=== PATIENT | male | born 1975 | race Caucasian/White ===

== ENCOUNTER 2018-07-08 17:33 | Day surgery (SDC) | payer BC, OTHER ==
[~2018-07-08] VITALS: Ht 203.2 cm; Wt 149.7 kg
[2018-07-08] MEDS ORDERED: morphine INJ 10 MG/ML 1ML (SYR OR VIAL) IVP STA ×2 (17:42→18:40)
[2018-07-08] MEDS ORDERED: diphenhydrAMINE 50 MG/ML INJ (BENADRYL) IVP ONE (17:45)
[2018-07-08] MEDS ORDERED: ASPIRIN 81 MG CHEW (CHILDREN'S ASA) PO ONE (17:45)
--- NOTE | 2018-07-08 17:51 | ED Chest Pain ---
General Stated Complaint: CP Source: patient Exam Limitations: no limitations History of Present Illness Date Seen by Provider: Jul 08, 2018 Time Seen by Provider: 17:34 Initial Comments 42-year-old male who presents to the emergency room with complaints of left- sided substernal chest pain that radiates to his left neck and down to his left arm that started at 1640. He reports taking aspirin 325mg and nitroglycerin 3 without relief. He reports that he did have a syncopal episode and vomiting 1 at this time. He is on Plavix and Eliquis and daily aspirin. He reports having significant cardiac history including NSTEMI 1 year ago, history of A. fib, V. tach, pacemaker, and heart failure. He is from [place] and reports that last week he failed a Lexiscan stress test but he is out of town due to his father being ill and was not able to get the heart catheterization that was requested. Timing/Duration: 1 hour Severity/Quality: pressure, sharp Location: substernal Radiation: arms (left), neck (left) Activities at Onset: none Prior CP/Workup: cardiac cath, echocardiography, heart attack, stress test ASA po TRANSLATOR: Yes NTG SL TRANSLATOR: Yes Associated Symptoms: diaphoresis, nausea/vomiting, syncope Allergies and Home Medications Allergies Coded Allergies: adhesive (Verified Allergy, Unknown, rash, 07/08/18) heparin (Verified Allergy, Unknown, 07/08/18) ketorolac (Verified Allergy, Unknown, 07/08/18) Patient Home Medication List Home Medication List Reviewed: Yes Review of Systems Review of Systems Constitutional: see HPI; No chills, No fever Cardiovascular: See HPI, Chest Pain, Syncope Gastrointestinal: See HPI, Nausea, Vomiting All Other Systems Reviewed Negative Unless Noted: Yes Past Wxtuwuh-Azmawt-Hfhwbe Hx Past Med/Social Hx: Reviewed Nursing Past Med/Soc Hx Patient Social History Recent Foreign Travel: No Contact w/Someone Who Travel: No Family Medical History Reviewed Nursing Family Hx Physical Exam Vital Signs Vital Signs - First Documented 07/08/18 17:34 Pulse 84 Resp 17 B/P (MAP) 149/102 (118) Pulse Ox 100 O2 Delivery Room Air Capillary Refill : Height, Weight, BMI Height: '" Weight: lbs. oz. kg; BMI Method: General Appearance: No Apparent Distress, WD/WN Neck: Full Range of Motion, Normal Inspection, Non Tender Respiratory: Chest Non Tender, Lungs Clear, Normal Breath Sounds, No Accessory Muscle Use, No Respiratory Distress Cardiovascular: Regular Rate, Rhythm, No Edema, No Gallop, No JVD, No Murmur, Normal Peripheral Pulses Gastrointestinal: Normal Bowel Sounds, No Organomegaly, No Pulsatile Mass, Non Tender Neurologic/Psychiatric: Alert, Oriented x3, Normal Mood/Affect Skin: Normal Color, Warm/Dry Progress/Results/Core Measures Results/Orders Lab Results Laboratory Tests Test 07/08/18 17:54 Range/Units White Blood Count 6.1 4.3-11.0 10^3/uL Red Blood Count 4.24 L 4.35-5.85 10^6/uL Hemoglobin 10.8 L 13.3-17.7 G/DL Hematocrit 35 L 40-54 % Mean Corpuscular Volume 82 80-99 FL Mean Corpuscular Hemoglobin 25 25-34 PG Mean Corpuscular Hemoglobin Concent 31 L 32-36 G/DL Red Cell Distribution Width 14.6 H 10.0-14.5 % Platelet Count 230 130-400 10^3/uL Mean Platelet Volume 9.4 7.4-10.4 FL Neutrophils (%) (Auto) 78 H 42-75 % Lymphocytes (%) (Auto) 13 12-44 % Monocytes (%) (Auto) 7 0-12 % Eosinophils (%) (Auto) 2 0-10 % Basophils (%) (Auto) 0 0-10 % Neutrophils # (Auto) 4.8 1.8-7.8 X 10^3 Lymphocytes # (Auto) 0.8 L 1.0-4.0 X 10^3 Monocytes # (Auto) 0.4 0.0-1.0 X 10^3 Eosinophils # (Auto) 0.1 0.0-0.3 10^3/uL Basophils # (Auto) 0.0 0.0-0.1 10^3/uL Prothrombin Time 14.0 12.2-14.7 SEC INR Comment 1.0 0.8-1.4 Activated Partial Thromboplast Time 30 24-35 SEC Sodium Level 141 135-145 MMOL/L Potassium Level 4.1 3.6-5.0 MMOL/L Chloride Level 107 98-107 MMOL/L Carbon Dioxide Level 27 21-32 MMOL/L Anion Gap 7 5-14 MMOL/L Blood Urea Nitrogen 11 7-18 MG/DL Creatinine 0.94 0.60-1.30 MG/DL Estimat Glomerular Filtration Rate > 60 BUN/Creatinine Ratio 12 Glucose Level 120 H 70-105 MG/DL Calcium Level 9.2 8.5-10.1 MG/DL Corrected Calcium 9.4 8.5-10.1 MG/DL Magnesium Level 2.1 1.8-2.4 MG/DL Total Bilirubin 0.3 0.1-1.0 MG/DL Aspartate Amino Transf (AST/SGOT) 15 5-34 U/L Alanine Aminotransferase (ALT/SGPT) 23 0-55 U/L Alkaline Phosphatase 68 40-136 U/L Myoglobin 27.1 10.0-92.0 NG/ML Troponin I < 0.028 <0.028 NG/ML B-Type Natriuretic Peptide 27.6 <100.0 PG/ML Total Protein 6.7 6.4-8.2 GM/DL Albumin 3.8 3.2-4.5 GM/DL Amylase Level 43 25-125 U/L Lipase 13 8-78 U/L My Orders Orders - BATOOL LOPEZ Cbc With Automated Diff (07/08/18 17:34) Magnesium (07/08/18 17:34) Chest 1 View, Ap/Pa Only (07/08/18 17:34) Ekg Tracing (07/08/18 17:34) Cardiac Profile 1 (07/08/18 17:34) Comprehensive Metabolic Panel (07/08/18 17:34) Myoglobin Serum (07/08/18 17:34) Protime With Inr (07/08/18 17:34) Partial Thromboplastin Time (07/08/18 17:34) O2 (07/08/18 17:34) Monitor-Rhythm Ecg Trace Only (07/08/18 17:34) Lipid Panel (07/09/18 06:00) Ed Iv/Invasive Line Start (07/08/18 17:34) Lipase (07/08/18 17:34) Amylase (07/08/18 17:34) BNP (07/08/18 17:42) Morphine Injection (Morphine Injection (07/08/18 17:42) Diphenhydramine Injection (Benadryl Inje (07/08/18 17:45) Morphine Injection (Morphine Injection (07/08/18 18:40) Medications Given in ED Current Medications Medications Dose Ordered Sig/Louis Route Start Time Stop Time Status Last Admin Dose Admin Diphenhydramine HCl 25 mg ONCE ONCE IVP 07/08/18 17:45 07/08/18 17:46 DC 07/08/18 18:01 25 MG Vital Signs/I&O 07/08/18 07/08/18 17:34 17:34 Pulse 84 Resp 17 B/P (MAP) 149/102 (118) Pulse Ox 100 O2 Delivery Room Air Room Air Progress Progress Note : Time: 18:40 Progress Note I have seen and evaluated the patient. I've informed him of his laboratory and imaging studies. His pain has improved after morphine from a 7 out of 10 to a 2 out of 10. We will give 1 additional dose of morphine at this time. I have discussed the case with Dr. Orellana at this time and he wishes to have the patient admitted to hospitalist services and consult on the patient. He recommends giving 300 mg one time dose of Plavix at this time serial troponins and echo in the morning. 1911; I have discussed the case with Dr. Post at this time he agrees to accept the patient to hospitalist services and recommends verifying and continuing home medications. The patient agrees with plans of admission. Initial ECG Impression Date: Jul 08, 2018 Initial ECG Impression Time: 17:43 Initial ECG Rate: 85 Initial ECG Rhythm: Normal Sinus Initial ECG Intervals: Normal Initial ECG Impression: Normal Initial ECG Comparisson: No Previous ECG Available Comment Dr. Steele has reviewed and agrees with above. Diagnostic Imaging Diagonstic Imaging: Xray Plain Films/CT/US/NM/MRI: chest Comments NAME: SHAHRZAD NATH [facility] REC#: [id number] PT STATUS: REG ER : 1975 PHYSICIAN: BATOOL LOPEZ ADMIT DATE: 07/08/18/ER Signed Date of Exam: 07/08/18 CHEST 1 VIEW, AP/PA ONLY INDICATION: Chest pain with left arm pain and shortness of breath. FINDINGS: The lung volumes are mildly diminished. The visualized portions of the lungs demonstrate no evidence of alveolar consolidation or infiltrate or findings of significant effusion. There is a pacemaker device. Central pulmonary vascularity appears appropriate without evidence of current failure. There is no acute or suspicious osseous abnormality. IMPRESSION: 1. No radiographic evidence of an acute cardiopulmonary process. Dictated by: Dictated on workstation # [id number] Dict: 07/08/18 1809 Trans: 07/08/181903 Interpreted by: LAURI SMITH MD Electronically signed by: LAURI SMITH MD 07/08/181903 Reviewed: Reviewed by Me Departure Communication (Admissions) Time/Spoke to Admitting Phy: 19:11 Dr. Post Time/Spoke to Consulting Phy: 18:55 Dr. Orellana Impression Primary Impression: Chest pain Disposition: ADMITTED INPATIENT Condition: Stable/Unchanged Admissions Decision to Admit Reason: Admit from ER (General) Decision to Admit/Date: Jul 08, 2018 Time/Decision to Admit Time: 19:00 Departure-Patient Inst. Referrals: NO,LOCAL PHYSICIAN (PCP/Family) Primary Care Physician BATOOL LOPEZ Jul 08, 2018 17:51
[2018-07-08 18:02] LABS: BASOPHILS % (AUTO) 0 % (0-10); EOSINOPHILS # (AUTO) 0.1 10^3/uL (0.0-0.3); EOSINOPHILS % (AUTO) 2 % (0-10); HEMATOCRIT 35 % (40-54); HEMOGLOBIN 10.8 G/DL (13.3-17.7); LYMPHOCYTES # (AUTO) 0.8 X 10^3 (1.0-4.0); LYMPHOCYTES % (AUTO) 13 % (12-44); MEAN CORPUSCULAR HGB CONC 31 G/DL (32-36); MEAN CORPUSCULAR VOLUME 82 FL (80-99); MEAN PLATELET VOLUME 9.4 FL (7.4-10.4); MONOCYTES # (AUTO) 0.4 X 10^3 (0.0-1.0); MONOCYTES % (AUTO) 7 % (0-12); NEUTROPHILS # (AUTO) 4.8 X 10^3 (1.8-7.8); NEUTROPHILS % (AUTO) 78 % (42-75); PLATELET COUNT 230 10^3/uL (130-400); RED CELL DISTRIBUTION WIDTH 14.6 % (10.0-14.5); WHITE BLOOD COUNT 6.1 10^3/uL (4.3-11.0)
[2018-07-08 18:05] LABS: MEAN CORPUSCULAR HEMOGLOBIN 25 PG (25-34)
--- NOTE | 2018-07-08 18:20 | Diagnostic Imaging Report ---
INDICATION: Chest pain with left arm pain and shortness of breath. FINDINGS: The lung volumes are mildly diminished. The visualized portions of the lungs demonstrate no evidence of alveolar consolidation or infiltrate or findings of significant effusion. There is a pacemaker device. Central pulmonary vascularity appears appropriate without evidence of current failure. There is no acute or suspicious osseous abnormality. IMPRESSION: 1. No radiographic evidence of an acute cardiopulmonary process. Dictated by: Dictated on workstation # [id number]
[2018-07-08 18:23] LABS: ALANINE AMINOTRANSFERASE 23 U/L (0-55); ALBUMIN 3.8 GM/DL (3.2-4.5); ALKALINE PHOSPHATASE 68 U/L (40-136); AMYLASE 43 U/L (25-125); BILIRUBIN,TOTAL 0.3 MG/DL (0.1-1.0); BUN/CREATININE RATIO 12; CALCIUM 9.2 MG/DL (8.5-10.1); CARBON DIOXIDE 27 MMOL/L (21-32); CHLORIDE 107 MMOL/L (98-107); CREATININE SERUM 0.94 MG/DL (0.60-1.30); GFR ESTIMATED > 60; GLUCOSE 120 MG/DL (70-105); LIPASE 13 U/L (8-78); MAGNESIUM 2.1 MG/DL (1.8-2.4); POTASSIUM 4.1 MMOL/L (3.6-5.0); SODIUM 141 MMOL/L (135-145); TOTAL PROTEIN 6.7 GM/DL (6.4-8.2)
--- NOTE | 2018-07-08 19:09 | NUR ---
PTS PACEMAKER INTERROGATED. [employer] CALLED TO REPORT THAT THERE WAS NO RECORDED EVENT.
[2018-07-08] MEDS ORDERED: LISI-552 PO (19:21)
[2018-07-08] MEDS ORDERED: CLOP75TA69 PO (19:21)
[2018-07-08] MEDS ORDERED: MTP100TCR (19:21)
[2018-07-08] MEDS ORDERED: FURO-124 PO (19:21)
[2018-07-08] MEDS ORDERED: ZOLP10TA PO (19:21)
[2018-07-08] MEDS ORDERED: DOCU-143 PO (19:21)
[2018-07-08] MEDS ORDERED: ISOS30TA8 (19:21)
[2018-07-08] MEDS ORDERED: APIX5TAB PO (19:21)
[2018-07-08] MEDS ORDERED: TIZA4TAB11 (19:21)
[2018-07-08] MEDS ORDERED: ATOR40TA70 PO (19:21)
[2018-07-08] MEDS ORDERED: FENT1PAT11 TD (19:21)
[2018-07-08] MEDS ORDERED: CLOPIDOGREL 300 MG (PLAVIX) TABLET PO ONE (19:30)
--- OUTSIDE RECORDS SUMMARY | 2018-07-08 19:30 | XMS REPORT | Continuity of Care Document ---
Author Organization Unknown Address Unknown Allergies Active Description Code Type Severity Reaction Onset Reported/Identified Relationship to Patient Clinical Status Yes heparin Drug N/A Heparin-induced Yes heparin Drug N/A N /A Yes morphine Drug N/A Hives Yes Toradol Drug N/A Anaphylactic re Yes Toradol Drug N/A N /A Yes ADHESIVE TAPE Chemical N/A Dermatitis 06/27/2018 06/27/2018 Yes HEPARIN 86111 DRUG INGREDI N/A Other 06/27/2018 06/27/2018 Yes KETOROLAC TROMETHAMINE 70650 DRUG INGREDI High Anaphylaxis 06/27/20182018 Medications Medication Packaging Start Date Stop Date Route Dosage Sig furosemide 06/09/2018 PO 40 mg / 1 tab clopidogrel 06/09/2018 PO 75 mg / 1 tab apixaban 06/09/2018 PO 5 mg / 1 tab amiodarone 06/09/2018 PO 200 mg / 1 tab isosorbide mononitrate 2018 PO 30 mg / 1 tab lisinopril 06/09/2018 PO 20 mg / 1 tab oxyCODONE 06/09/2018 PO 30 mg / 1 tab metoprolol 06/09/2018 PO 100 mg / 1 tab docusate 06/09/2018 PO 100 mg / 1 cap fentaNYL 06/09/2018 TD fentaNYL 100 mcg/hr transdermal film, extended release zolpidem 06/09/2018 PO 10 mg / 1 tab LORazepam 06/09/2018 PO 2 mg / 1 tab tiZANidine 06/09/2018 PO 8 mg / 2 tab NITROGLYCERIN IN D5W 100-5 MCG/ML-% IV SOLN 06/27/2018 Intravenous CONTINUOUS ACETAMINOPHEN 500 MG PO TABS 02/2019 Oral 1000 ONCE NITROGLYCERIN 0.4 MG SL SUBL 02/2019 Sublingual 0.4 EVERY 5 MIN PRN CLOPIDOGREL BISULFATE 75 MG PO TABS 06/27/2018 Oral 75 DAILY ASPIRIN 81 MG PO TBEC 06/27/2018 Oral 81 DAILY METOPROLOL SUCCINATE 100 MG PO CS24 06/27/2018 Oral 1 DAILY TIZANIDINE HCL 6 MG PO CAPS 06/27 Oral 6 3 TIMES DAILY LISINOPRIL 20 MG PO TABS 2018 Oral 20 DAILY AMIODARONE HCL 200 MG PO TABS 02/2019 Oral 200 DAILY DOCUSATE SODIUM 100 MG PO CAPS Oral 100 2 TIMES DAILY ATORVASTATIN CALCIUM 40 MG PO TABS 06/27/2018 Oral 40 BEDTIME DIPHENHYDRAMINE HCL 25 MG PO CAPS 06/28/2018 Oral 25 EVERY 6 HOURS PRN DIPHENHYDRAMINE HCL 50 MG/ML IJ SOLN 06/28/2018 Intravenous 25 EVERY 6 HOURS PRN METOPROLOL SUCCINATE ER 50 MG PO TB24 06/28/2018 Oral 100 DAILY ONDANSETRON HCL 4 MG/2ML IJ SOLN 06/29/2018 Intravenous 4 EVERY 8 HOURS PRN PHYTONADIONE 5 MG PO TABS 201807/02/2018 Oral 5 DAILY Problems Date Dx Coded Attending Type Code Diagnosis Diagnosed By 06/11/2018 Timbo Rashid D64.9 Anemia, unspecified 06/11/2018 Timbo Rashid Final E66.01 Morbid (severe) obesity due to excess calories 06/11/2018 Timbo Rashid E78.2 Mixed hyperlipidemia 06/11/2018 Timbo Rashid F11.20 Opioid dependence, uncomplicated 06/11/2018 Timbo Rashid Final G89.4 Chronic pain syndrome 06/11/2018 Timbo Rashid Final I11.0 Hypertensive heart disease with heart failure 06/11/2018 Timbo Rashid 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 06/11/2018 Timbo Rashid Final I47.2 Ventricular tachycardia 06/11/2018 Timbo Rashid Final I48.0 Paroxysmal atrial fibrillation 06/11/2018 Timbo Rashid I50.22 Chronic systolic (congestive) heart failure 06/11/2018 Timbo Rashid R07.9 Chest pain, unspecified 06/11/2018 Timbo Rashid Z68.36 Body mass index (BMI) 36.0-36.9, adult 06/11/2018 Timbo aRshid Final 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 06/11/2018 Timbo Rashid Final Z79.02 longterm (current) use of antithrombotics/antiplatelets 06/11/2018 Timbo Rashid Final Z86.718 Personal history of other venous thrombosis and embolism 06/11/2018 Timbo Rashid Final Z95.0 Presence of cardiac pacemaker 06/11/2018 Timbo Rashid Final Z98.84 Bariatric surgery status 07/01/2018 FAHAD SELLERS V [id number] Chest Pain 07/01/2018 FAHAD SLELERS I20.0 Unstable angina (HCC) 07/01/2018 FAHAD SELLERS V R79.1 Abnormal coagulation profile 07/01/2018 FAHAD SELLERS 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 induced thrombocytopenia (HIT) (HCC) 07/01/2018 FAHAD SELLERS E63.9 Nutritional deficiency, unspecified 07/01/2018 FAHAD SELLERS E66.01 Morbid (severe) obesity due to excess calories (HCC) 07/01/2018 FAHAD SELLERS E78.5 Hyperlipidemia, unspecified 07/01/2018 FAHAD SELLERS E87.6 Hypokalemia 07/01/2018 FAHAD SELLERS I10 Essential (primary) hypertension 07/01/2018 FAHAD SELLERS I25.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 pectoris (HCC) 07/01/2018 FAHAD SELLERS I25.2 Old myocardial infarction 07/01/2018 FAHAD SELLERS I47.2 Ventricular tachycardia (HCC) 07/01/2018 FAHAD SELLERS I48.0 Paroxysmal atrial fibrillation (HCC) 07/01/2018 FAHAD SELLERS J98.11 Atelectasis 07/01/2018 FAHAD SELLERS K76.9 Liver disease, unspecified 07/01/2018 FAHAD SELLERS R11.0 Nausea 07/01/2018 FAHAD SELLERS R55 Syncope and collapse 07/01/2018 FAHAD SELLERS R79.1 Abnormal coagulation profile 07/01/2018 FAHAD SELLERS R94.39 Abnormal result of other cardiovascular function study 07/01/2018 FAHAD SELLERS Z68.39 Body mass index (bmi) 39.0-39.9, adult 07/01/2018 FAHAD SELLERS Z79.01 longterm (current) use of anticoagulants 07/01/2018 FAHAD SELLERS 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 07/01/2018 FAHAD SELLERS Z79.82 longterm (current) use of aspirin 07/01/2018 FAHAD SELLERS 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 07/01/2018 FAHAD SELLERS Z82.49 Family history of ischemic heart disease and other diseases of the circulatory system 07/01/2018 FAHAD SELLERS Z86.718 Personal history of other venous thrombosis and embolism 07/01/2018 FAHAD SELLERS Z86.74 Personal history of sudden cardiac arrest 07/01/2018 FAHAD SELLERS Z86.79 Personal history of other diseases of the circulatory system 07/01/2018 FAHAD SELLERS Z95.0 Presence of cardiac pacemaker 07/01/2018 FAHAD SELLERS Z96.642 Presence of left artificial hip joint 07/01/2018 FAHAD SELLERS Z98.84 Bariatric surgery status 07/01/2018 FAHAD SELLERS I20.0 Unstable angina (HCC) Procedures There is no data. Results Test Result Range CBC WITH AUTO DIFFERENTIAL - 06/27/18 14:11 BASOPHILS RELATIVE PERCENT 0.5 % 0.0-2.5 EOSINOPHILS RELATIVE PERCENT 1.1 % <=5.0 HEMATOCRIT 40.2 % 38.8-50.0 HEMOGLOBIN 12.3 g/dL 13.5-17.5 LYMPHOCYTES RELATIVE PERCENT 16.6 % 22.0-49.0 MEAN CORPUSCULAR HEMOGLOBIN 25.8 pg 26.0-34.0 MEAN CORPUSCULAR HEMOGLOBIN CONC 30.6 g/dL 31.0-37.0 MEAN CORPUSCULAR VOLUME 84.5 fL 81.2-95.1 MONOCYTES RELATIVE PERCENT 8.7 % 2.0-9.0 NEUTROPHILS RELATIVE PERCENT 73.1 % 40.0-75.0 NUCLEATED RED BLOOD CELLS 0 10E9/L <=0 PLATELET COUNT 217 10E9/L 150-450 RED BLOOD CELL COUNT 4.76 10E12/L 4.32-5.72 RED CELL DISTRIBUTION WIDTH 13.9 % 11.8-15.6 [id number] 6.1 10E9/L 3.5-10.5 1584917 1.01 10E9/L 0.90-2.90 8545344 0.53 10E9/L 0.30-0.90 7340633 0.07 10E9/L 0.05-0.50 8169972 4.45 10E9/L 1.70-7.00 7567187 0.03 10E9/L 0.00-0.30 6411013 0 % PT T APTT - 06/27/18 14:11 APTT 36.8 sec. 25.0-36.0 INR 3.67 INR PROTHROMBIN TIME 37.4 sec. 11.8-14.8 COMPREHENSIVE METABOLIC PANEL - 06/27/18 14:11 ALBUMIN 4.4 g/dL 3.4-4.8 ALKALINE PHOSPHATASE 87 U/L 29-122 ALT 12 U/L 10-46 ANION GAP 10 AST 14 U/L 16-37 BILIRUBIN,TOTAL 0.3 mg/dL 0.0-1.2 BUN BLOOD 16 mg/dL 6-20 CALCIUM 8.8 mg/dL 8.7-10.5 CHLORIDE 108 mmol/L 99-111 CO2 25 mmol/L 20-36 CREATININE 0.92 mg/dL 0.60-1.20 EGFR > mL/min >59 GLUCOSE 101 mg/dL 74-106 POTASSIUM 3.3 mmol/L 3.6-4.9 PROTEIN TOTAL 6.2 g/dL 6.4-8.3 SODIUM 143 mmol/L 136-145 TROPONIN I - 06/27/18 14:11 TROPONIN I < ng/mL 0.000-0.040 B-TYPE NATRIURETIC PEPTIDE - 06/27/18 14:11 B-TYPE NATRIURETIC PEPTIDE 24 pg/mL <=100 TROPONIN I - 06/27/18 17:44 TROPONIN I < ng/mL 0.000-0.040 TROPONIN I - 06/27/18 20:39 TROPONIN I < ng/mL 0.000-0.040 CBC WITH AUTO DIFFERENTIAL - 06/28/18 07:42 BASOPHILS RELATIVE PERCENT 0.5 % 0.0-2.5 EOSINOPHILS RELATIVE PERCENT 1.2 % <=5.0 HEMATOCRIT 33.8 % 38.8-50.0 HEMOGLOBIN 10.3 g/dL 13.5-17.5 LYMPHOCYTES RELATIVE PERCENT 11.1 % 22.0-49.0 MEAN CORPUSCULAR HEMOGLOBIN 25.9 pg 26.0-34.0 MEAN CORPUSCULAR HEMOGLOBIN CONC 30.5 g/dL 31.0-37.0 MEAN CORPUSCULAR VOLUME 85.1 fL 81.2-95.1 MONOCYTES RELATIVE PERCENT 8.9 % 2.0-9.0 NEUTROPHILS RELATIVE PERCENT 78.3 % 40.0-75.0 NUCLEATED RED BLOOD CELLS 0 10E9/L <=0 PLATELET COUNT 201 10E9/L 150-450 RED BLOOD CELL COUNT 3.97 10E12/L 4.32-5.72 RED CELL DISTRIBUTION WIDTH 14.1 % 11.8-15.6 9837699 6.5 10E9/L 3.5-10.5 1902511 0.72 10E9/L 0.90-2.90 6470632 0.58 10E9/L 0.30-0.90 6286125 0.08 10E9/L 0.05-0.50 7115440 5.10 10E9/L 1.70-7.00 3789457 0.03 10E9/L 0.00-0.30 7696691 0 % COMPREHENSIVE METABOLIC PANEL - 06/28/18 07:42 ALBUMIN 3.8 g/dL 3.4-4.8 ALKALINE PHOSPHATASE 71 U/L 29-122 ALT 12 U/L 10-46 ANION GAP 5 AST 11 U/L 16-37 BILIRUBIN,TOTAL 0.3 mg/dL 0.0-1.2 BUN BLOOD 16 mg/dL 6-20 CALCIUM 8.4 mg/dL 8.7-10.5 CHLORIDE 107 mmol/L 99-111 CO2 28 mmol/L 20-36 CREATININE 0.96 mg/dL 0.60-1.20 EGFR > mL/min >59 GLUCOSE 91 mg/dL 74-106 POTASSIUM 3.4 mmol/L 3.6-4.9 PROTEIN TOTAL 5.4 g/dL 6.4-8.3 SODIUM 140 mmol/L 136-145 LIPID PANEL - 06/28/18 07:42 CHOLESTEROL 99 mg/dL <=200 HDL CHOLESTEROL 32 mg/dL 40-90 LDL CHOLESTEROL 55 mg/dL NON-HDL CHOLESTEROL 67 mg/dL 0-129 TRIGLYCERIDE 59 mg/dL 0-149 PT T APTT - 06/28/18 12:04 APTT 38.1 sec. 25.0-36.0 INR 3.69 INR PROTHROMBIN TIME 37.6 sec. 11.8-14.8 CBC WITH AUTO DIFFERENTIAL - 06/29/18 07:10 BASOPHILS RELATIVE PERCENT 0.3 % 0.0-2.5 EOSINOPHILS RELATIVE PERCENT 2.5 % <=5.0 HEMATOCRIT 36.7 % 38.8-50.0 HEMOGLOBIN 11.2 g/dL 13.5-17.5 LYMPHOCYTES RELATIVE PERCENT 11.2 % 22.0-49.0 MEAN CORPUSCULAR HEMOGLOBIN 26.1 pg 26.0-34.0 MEAN CORPUSCULAR HEMOGLOBIN CONC 30.5 g/dL 31.0-37.0 MEAN CORPUSCULAR VOLUME 85.5 fL 81.2-95.1 MONOCYTES RELATIVE PERCENT 6.0 % 2.0-9.0 NEUTROPHILS RELATIVE PERCENT 80.0 % 40.0-75.0 NUCLEATED RED BLOOD CELLS 0 10E9/L <=0 PLATELET COUNT 191 10E9/L 150-450 RED BLOOD CELL COUNT 4.29 10E12/L 4.32-5.72 RED CELL DISTRIBUTION WIDTH 14.4 % 11.8-15.6 1373190 6.1 10E9/L 3.5-10.5 0262386 0.68 10E9/L 0.90-2.90 2163387 0.36 10E9/L 0.30-0.90 7872047 0.15 10E9/L 0.05-0.50 4629705 4.84 10E9/L 1.70-7.00 4903402 0.02 10E9/L 0.00-0.30 6775613 0 % COMPREHENSIVE METABOLIC PANEL - 06/29/18 07:10 ALBUMIN 3.9 g/dL 3.4-4.8 ALKALINE PHOSPHATASE 81 U/L 29-122 ALT 15 U/L 10-46 ANION GAP 7 AST 20 U/L 16-37 BILIRUBIN,TOTAL 0.3 mg/dL 0.0-1.2 BUN BLOOD 20 mg/dL 6-20 CALCIUM 8.5 mg/dL 8.7-10.5 CHLORIDE 109 mmol/L 99-111 CO2 27 mmol/L 20-36 CREATININE 0.92 mg/dL 0.60-1.20 EGFR > mL/min >59 GLUCOSE 57 mg/dL 74-106 POTASSIUM 4.0 mmol/L 3.6-4.9 PROTEIN TOTAL 5.6 g/dL 6.4-8.3 SODIUM 143 mmol/L 136-145 PT T APTT - 06/29/18 07:10 APTT 36.0 sec. 25.0-36.0 INR 4.36 INR PROTHROMBIN TIME 42.9 sec. 11.8-14.8 EXTRA LIGHT BLUE TOP - 06/29/18 10:28 1324 Extra tube in lab EXTRA LIGHT BLUE TOP - 06/29/18 10:28 1324 Extra tube in lab CBC WITH AUTO DIFFERENTIAL - 06/30/18 06:38 BASOPHILS RELATIVE PERCENT 0.2 % 0.0-2.5 EOSINOPHILS RELATIVE PERCENT 3.2 % <=5.0 HEMATOCRIT 34.4 % 38.8-50.0 HEMOGLOBIN 10.4 g/dL 13.5-17.5 LYMPHOCYTES RELATIVE PERCENT 17.8 % 22.0-49.0 MEAN CORPUSCULAR HEMOGLOBIN 26.2 pg 26.0-34.0 MEAN CORPUSCULAR HEMOGLOBIN CONC 30.2 g/dL 31.0-37.0 MEAN CORPUSCULAR VOLUME 86.6 fL 81.2-95.1 MONOCYTES RELATIVE PERCENT 8.5 % 2.0-9.0 NEUTROPHILS RELATIVE PERCENT 70.3 % 40.0-75.0 NUCLEATED RED BLOOD CELLS 0 10E9/L <=0 PLATELET COUNT 195 10E9/L 150-450 RED BLOOD CELL COUNT 3.97 10E12/L 4.32-5.72 RED CELL DISTRIBUTION WIDTH 14.4 % 11.8-15.6 5448888 5.1 10E9/L 3.5-10.5 2708341 0.90 10E9/L 0.90-2.90 5115728 0.43 10E9/L 0.30-0.90 9577341 0.16 10E9/L 0.05-0.50 8974111 3.57 10E9/L 1.70-7.00 5107890 0.01 10E9/L 0.00-0.30 1283798 0 % PT T APTT - 06/30/18 06:38 APTT 44.9 sec. 25.0-36.0 INR 1.84 INR PROTHROMBIN TIME 21.5 sec. 11.8-14.8 COMPREHENSIVE METABOLIC PANEL - 06/30/18 06:38 ALBUMIN 3.7 g/dL 3.4-4.8 ALKALINE PHOSPHATASE 73 U/L 29-122 ALT 14 U/L 10-46 ANION GAP 4 AST 20 U/L 16-37 BILIRUBIN,TOTAL 0.4 mg/dL 0.0-1.2 BUN BLOOD 20 mg/dL 6-20 CALCIUM 8.2 mg/dL 8.7-10.5 CHLORIDE 108 mmol/L 99-111 CO2 29 mmol/L 20-36 CREATININE 0.83 mg/dL 0.60-1.20 EGFR > mL/min >59 GLUCOSE 84 mg/dL 74-106 POTASSIUM 4.2 mmol/L 3.6-4.9 PROTEIN TOTAL 5.4 g/dL 6.4-8.3 SODIUM 141 mmol/L 136-145 CBC WITH AUTO DIFFERENTIAL - 07/01/18 06:32 BASOPHILS RELATIVE PERCENT 0.4 % 0.0-2.5 EOSINOPHILS RELATIVE PERCENT 2.8 % <=5.0 HEMATOCRIT 33.6 % 38.8-50.0 HEMOGLOBIN 10.0 g/dL 13.5-17.5 LYMPHOCYTES RELATIVE PERCENT 15.0 % 22.0-49.0 MEAN CORPUSCULAR HEMOGLOBIN 25.7 pg 26.0-34.0 MEAN CORPUSCULAR HEMOGLOBIN CONC 29.8 g/dL 31.0-37.0 MEAN CORPUSCULAR VOLUME 86.4 fL 81.2-95.1 MONOCYTES RELATIVE PERCENT 8.1 % 2.0-9.0 NEUTROPHILS RELATIVE PERCENT 73.7 % 40.0-75.0 NUCLEATED RED BLOOD CELLS 0 10E9/L <=0 PLATELET COUNT 167 10E9/L 150-450 RED BLOOD CELL COUNT 3.89 10E12/L 4.32-5.72 RED CELL DISTRIBUTION WIDTH 14.4 % 11.8-15.6 1297755 4.9 10E9/L 3.5-10.5 0557594 0.74 10E9/L 0.90-2.90 1509962 0.40 10E9/L 0.30-0.90 4031466 0.14 10E9/L 0.05-0.50 2577939 3.64 10E9/L 1.70-7.00 8593614 0.02 10E9/L 0.00-0.30 8251355 0 % PT T APTT - 07/01/18 06:32 APTT 31.6 sec. 25.0-36.0 INR 1.28 INR PROTHROMBIN TIME 16.1 sec. 11.8-14.8 COMPREHENSIVE METABOLIC PANEL - 07/01/18 06:32 ALBUMIN 3.6 g/dL 3.4-4.8 ALKALINE PHOSPHATASE 72 U/L 29-122 ALT 9 U/L 10-46 ANION GAP 4 AST 14 U/L 16-37 BILIRUBIN,TOTAL 0.5 mg/dL 0.0-1.2 BUN BLOOD 15 mg/dL 6-20 CALCIUM 8.1 mg/dL 8.7-10.5 CHLORIDE 108 mmol/L 99-111 CO2 28 mmol/L 20-36 CREATININE 0.77 mg/dL 0.60-1.20 EGFR > mL/min >59 GLUCOSE 88 mg/dL 74-106 POTASSIUM 4.2 mmol/L 3.6-4.9 PROTEIN TOTAL 5.2 g/dL 6.4-8.3 SODIUM 140 mmol/L 136-145 Radiology Report from [id number] on 06/27/2018 15:29:29 EXAM: Chest, AP ViewINDICATION: Atypical chest painTECHNIQUE: Single AP viewCOMPARISON: NoneFINDINGS:Cardiac pacemaker noted.The heart size is normal.The great vessels appear unremarkable.There is no hilar or mediastinal mass.Mild decreased depth of inspiration with some minimal linear atelectasis in the left lower lung.There is no pleural effusion or pneumothorax.There are no significant osseous abnormalities.IMPRESSION:1. Mild decreased depth of aeration with minimal left basilar atelectasis. Encounters ACCT No. Visit Date/Time Discharge Status Pt. Type Provider Facility Loc./Unit Complaint [id number] 06/27/2018 13:51:22 07/01/2018 10:54:00 DIS Inpatient [facility] SELLERS [facility] [id number] 06/27/2018 14:26:28 Document Registration [id number] 06/09/2018 21:29:00 06/11/2018 13:25:00 DIS Inpatient [facility]
--- OUTSIDE RECORDS SUMMARY | 2018-07-08 19:48 | XMS REPORT | Continuity of Care Document ---
[...] Chemical N/A Dermatitis 06/27/2018 06/27/2018 Yes HEPARIN 96740 DRUG INGREDI N/A Other 06/27/2018 06/27/2018 Yes KETOROLAC TROMETHAMINE 18787 DRUG INGREDI High Anaphylaxis 06/27/20182018 Medications Medication [...] Timbo Rashid I25.10 Atherosclerotic heart disease of [place] coronary artery with 06/11/2018 Timbo Rashid Final I47.2 Ventricular tachycardia 06/11/2018 Timbo Rashid Final I48.0 Paroxysmal atrial fibrillation 06/11/2018 Timbo Rashid I50.22 Chronic systolic (congestive) heart failure 06/11/2018 Timbo Rashid R07.9 Chest pain, unspecified 06/11/2018 Timbo Rashid Z68.36 Body mass index (BMI) 36.0-36.9, adult 06/11/2018 Timbo Rashid Final 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 06/11/2018 Timbo Rashid Final Z79.02 correction (current) use of antithrombotics/antiplatelets 06/11/2018 Timbo Rashid Final Z86.718 Personal history of other venous thrombosis and embolism 06/11/2018 Timbo Rashid Final Z95.0 Presence of cardiac pacemaker 06/11/2018 Timbo Rashid Final Z98.84 Bariatric surgery status 07/01/2018 FAHAD SELLERS V [id number] Chest Pain 07/01/2018 FAHAD SELLERS I20.0 Unstable angina (HCC) 07/01/2018 FAHAD SELLERS [...] FAHAD SELLERS I25.110 Atherosclerotic heart disease of [place] coronary artery with unstable angina pectoris (HCC) [...] (bmi) 39.0-39.9, adult 07/01/2018 FAHAD SELLERS Z79.01 correction (current) use of anticoagulants 07/01/2018 FAHAD SELLERS 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/antiplatelets 07/01/2018 FAHAD SELLERS Z79.82 correction (current) use of aspirin 07/01/2018 FAHAD SELLERS Z79.899 Other termite treater (current) drug therapy 07/01/2018 FAHAD SELLERS Z82.49 [...] RED CELL DISTRIBUTION WIDTH 13.9 % 11.8-15.6 [id number] 6.1 10E9/L 3.5-10.5 [id number] 1.01 10E9/L 0.90-2.90 8565642 0.53 10E9/L 0.30-0.90 8438208 0.07 10E9/L 0.05-0.50 3654884 4.45 10E9/L 1.70-7.00 5497771 0.03 10E9/L 0.00-0.30 4631004 0 % PT T APTT - 06/27/18 [...] RED CELL DISTRIBUTION WIDTH 14.1 % 11.8-15.6 2593543 6.5 10E9/L 3.5-10.5 8083928 0.72 10E9/L 0.90-2.90 8090587 0.58 10E9/L 0.30-0.90 9784304 0.08 10E9/L 0.05-0.50 5226041 5.10 10E9/L 1.70-7.00 2221950 0.03 10E9/L 0.00-0.30 9985745 0 % COMPREHENSIVE METABOLIC PANEL - 06/28/18 [...] RED CELL DISTRIBUTION WIDTH 14.4 % 11.8-15.6 4691554 6.1 10E9/L 3.5-10.5 1883890 0.68 10E9/L 0.90-2.90 1847505 0.36 10E9/L 0.30-0.90 5687498 0.15 10E9/L 0.05-0.50 1759137 4.84 10E9/L 1.70-7.00 6503360 0.02 10E9/L 0.00-0.30 4675744 0 % COMPREHENSIVE METABOLIC PANEL - 06/29/18 [...] RED CELL DISTRIBUTION WIDTH 14.4 % 11.8-15.6 9555910 5.1 10E9/L 3.5-10.5 2572908 0.90 10E9/L 0.90-2.90 3211239 0.43 10E9/L 0.30-0.90 6005098 0.16 10E9/L 0.05-0.50 8905465 3.57 10E9/L 1.70-7.00 3244921 0.01 10E9/L 0.00-0.30 0688108 0 % PT T APTT - 06/30/18 [...] RED CELL DISTRIBUTION WIDTH 14.4 % 11.8-15.6 4138001 4.9 10E9/L 3.5-10.5 3021346 0.74 10E9/L 0.90-2.90 0062505 0.40 10E9/L 0.30-0.90 0584541 0.14 10E9/L 0.05-0.50 7438408 3.64 10E9/L 1.70-7.00 0030364 0.02 10E9/L 0.00-0.30 3488229 0 % PT T APTT - 07/01/18 [...] Status Pt. Type Provider Facility Loc./Unit Complaint [id number] 06/27/2018 13:51:22 07/01/2018 10:54:00 DIS Inpatient FAHAD SELLERS [facility] [id number] 06/27/2018 14:26:28 Document Registration [id number] 06/09/2018 21:29:00 06/11/2018 13:25:00 DIS Inpatient Timbo Rashid [facility] ICU ACS
[2018-07-08] MEDS: fentaNYL PATCH 100 MCG (DURAGESIC) TD SCH (20:06)
[2018-07-08 20:44] VITALS: BP 171/95
--- NOTE | 2018-07-08 21:00 | NUR ---
SHAHRZAD NATH admitted to room 409-1, with an admitting diagnosis of CHEST PAIN, on 07/08/18 from ER via WHEELCHAIR.SHAHRZAD NATH JR introduced to surroundings, call light, bed controls, phone, TV, temperature control, lights, meal times, smoking policy, visitor policy, side rail policy, bathrooms and showers. Patient Rights given to patient in the handbook.SHAHRZAD NATH JR verbalizes understanding that [facility] is not responsible for the loss or damage to any personal effects or valuables that are kept in the patients posession during their hospitalization.
[2018-07-08] MEDS: diphenhydrAMINE 50 MG/ML INJ (BENADRYL) IVP PRN (21:56)
[2018-07-08] MEDS: ZOLPIDEM 5 MG (AMBIEN) TAB PO PRN (22:00)
[2018-07-08] MEDS ORDERED: morphine INJ 4 MG/ML 1 ML (VIAL/SYRINGE) IVP PRN (22:45)
[2018-07-09 00:13] VITALS: BP 115/58
[2018-07-09 04:25] VITALS: BP 151/67
[2018-07-09 04:44] LABS: BASOPHILS % (AUTO) 0 % (0-10); EOSINOPHILS # (AUTO) 0.1 10^3/uL (0.0-0.3); EOSINOPHILS % (AUTO) 2 % (0-10); HEMATOCRIT 32 % (40-54); HEMOGLOBIN 9.9 G/DL (13.3-17.7); LYMPHOCYTES # (AUTO) 0.9 X 10^3 (1.0-4.0); LYMPHOCYTES % (AUTO) 22 % (12-44); MEAN CORPUSCULAR HEMOGLOBIN 26 PG (25-34); MEAN CORPUSCULAR HGB CONC 31 G/DL (32-36); MEAN CORPUSCULAR VOLUME 82 FL (80-99); MEAN PLATELET VOLUME 10.2 FL (7.4-10.4); MONOCYTES # (AUTO) 0.3 X 10^3 (0.0-1.0); MONOCYTES % (AUTO) 9 % (0-12); NEUTROPHILS # (AUTO) 2.7 X 10^3 (1.8-7.8); NEUTROPHILS % (AUTO) 67 % (42-75); PLATELET COUNT 211 10^3/uL (130-400); RED CELL DISTRIBUTION WIDTH 14.6 % (10.0-14.5)
[2018-07-09 05:02] LABS: ALANINE AMINOTRANSFERASE 18 U/L (0-55); ALBUMIN 3.3 GM/DL (3.2-4.5); ALKALINE PHOSPHATASE 59 U/L (40-136); BILIRUBIN,TOTAL 0.3 MG/DL (0.1-1.0); BUN/CREATININE RATIO 13; CALCIUM 8.8 MG/DL (8.5-10.1); CARBON DIOXIDE 26 MMOL/L (21-32); CHLORIDE 107 MMOL/L (98-107); CHOLESTEROL 109 MG/DL (< 200); CREATININE SERUM 0.84 MG/DL (0.60-1.30); GFR ESTIMATED > 60; GLUCOSE 84 MG/DL (70-105); HDL CHOLESTEROL 22 MG/DL (40-60); POTASSIUM 4.3 MMOL/L (3.6-5.0); SODIUM 141 MMOL/L (135-145); TOTAL PROTEIN 5.8 GM/DL (6.4-8.2); TRIGLYCERIDES 61 MG/DL (<150); VLDL CHOLESTEROL 12 MG/DL (5-40)
[2018-07-09] MEDS: diphenhydrAMINE 50 MG/ML INJ (BENADRYL) IVP PRN ×4 (06:01→22:45)
[2018-07-09] MEDS: fentaNYL PATCH 100 MCG (DURAGESIC) TD SCH (06:02)
[2018-07-09] MEDS: NITROGLYCERIN 0.4 MG SL TABS BTL 25'S SL PRN ×2 (07:54→11:03)
[2018-07-09] MEDS ORDERED: AMIO200T4 PO (08:39)
[2018-07-09] MEDS ORDERED: METO-395 PO (08:39)
[2018-07-09] MEDS ORDERED: OXYC30TA80 PO (08:39)
[2018-07-09] MEDS ORDERED: TIZA6CAP9 PO (08:39)
[2018-07-09] MEDS ORDERED: NITR0.4T39 SL (08:39)
[2018-07-09] MEDS ORDERED: LORA-407 PO (08:39)
[2018-07-09] MEDS ORDERED: ISOS30TA3 PO (08:39)
--- NOTE | 2018-07-09 08:45 | NUR ---
PATIENT HAD A DETAILED MEDICATION LIST ON HIS PHONE. HE IS FROM OUT OF STATE AND DOES NOT FILL MEDICATIONS LOCALLY, I WAS UNABLE TO VERIFY THE LAST FILL DATES AND STRENGTHS BUT HE STATES HIS LIST IS UP TO DATE.
[2018-07-09 09:00] VITALS: BP 118/71
[2018-07-09] MEDS: ISOSORBIDE MONONITRATE 30 MG (IMDUR) TAB PO SCH ×2 (09:19→21:04)
[2018-07-09] MEDS: DOCUSATE SODIUM 100 MG (COLACE) CAP PO SCH ×2 (09:19→21:06)
[2018-07-09] MEDS: AMIODARONE 200 MG (CORDARONE) TAB PO SCH (09:20)
[2018-07-09] MEDS: lisINopril 20 MG (PRINIVIL) TABLET PO SCH (09:20)
[2018-07-09] MEDS: FUROSEMIDE 40 MG (LASIX) TAB PO SCH (09:20)
[2018-07-09] MEDS: CLOPIDOGREL 75 MG (PLAVIX) TABLET PO SCH (09:20)
[2018-07-09] MEDS: meTOprolol SUCCINATE 100 MG (TOPROL XL) TAB PO SCH (09:20)
[2018-07-09 12:00] VITALS: BP 113/62
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
[2018-07-09 16:13] VITALS: BP 109/69
[2018-07-09 20:00] VITALS: BP 105/59
[2018-07-09] MEDS ORDERED: ATORVASTATIN 40 MG (LIPITOR) TABLET PO SCH (21:00)
[2018-07-09] MEDS: ZOLPIDEM 5 MG (AMBIEN) TAB PO PRN (22:45)
[2018-07-10 00:41] VITALS: BP 106/62
[2018-07-10] MEDS ORDERED: fentaNYL PATCH 100 MCG (DURAGESIC) TD SCH (02:15)
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
[2018-07-10] MEDS: diphenhydrAMINE 50 MG/ML INJ (BENADRYL) IVP PRN ×2 (02:50→06:50)
[2018-07-10 04:19] VITALS: BP 129/58
[2018-07-10] MEDS ORDERED: HEParin (CATH LAB) 0 ML IV ONE (06:02)
[2018-07-10] MEDS ORDERED: NS IV 1000 ML 1,000 ML ONE (06:02)
[2018-07-10] MEDS ORDERED: LIDOCAINE 1% INJ 20 ML 20 ML VIAL ONE (06:02)
[2018-07-10] MEDS ORDERED: NS IV 1000 ML 2,000 ML ONE (06:03)
[2018-07-10 08:00] VITALS: BP 123/64
[2018-07-10] MEDS: CLOPIDOGREL 75 MG (PLAVIX) TABLET PO SCH ×2 (08:20→08:44)
--- NOTE | 2018-07-10 08:25 | Cardiology Progress Note ---
Cardiology SOAP Progress Note Subjective: No further chest pain. Objective: I&O/Vital Signs 07/10/18 07/10/18 07/10/18 07/10/18 00:41 01:56 04:19 07:00 Temp 98.8 98.9 Pulse 79 72 75 86 Resp 18 18 B/P (MAP) 106/62 (77) 129/58 (81) Pulse Ox 96 97 O2 Delivery Room Air Room Air 07/10/18 00:00 Intake Total 1100 ml Balance 1100 ml Weight (Pounds): 330 Weight (Calculated Kilograms): 149.322714 Constitutional: appears stated age, AAO x 3; No apparent distress; well- developed, well-nourished Respiratory: No accessory muscle use, No respiratory distress, No chest tender , No chest expansion is symmetric; chest is bilaterally symmetric; No lungs clear to percussion; lungs clear to auscultation; No crackles, No rhonchi, No rales, No stridor, No wheezing, No pleural rub, No other Cardiovascular: regular rate-rhythm; No irregularly irregular, No extra beats, No parasternal heave is noted, No JVD, No edema, No bradycardia, No tachycardia , No point of maximal impulse, No cardiac thrills are palpable; S1 and S2; No gallop/S3, No gallop/S4, No diastolic murmur, No systolic murmur, No friction rub, No click, No other Gastrointestional: No tender, No soft, No round, No distended, No pulsatile mass, No organomegaly, No guarding, No rebound, No tenderness, No hernia, No mass, No audible bowel sounds, No abnormal bowel sounds, No abdominal bruits, No spleenomegaly, No other Extremities: No normal range of motion, No non-tender, No normal inspection, No pedal edema, No calf tenderness, No normal capillary refill, No pelvis stable , No calf tenderness, No inflammation, No pedal edema, No slow capillary refill , No swelling, No other, No abrasion, No clubbing, No cyanosis, No ecchymosis, No laceration, No no lower extremity edema bilateral, No significant edema, No tenderness, No wound Neurologic/Psychiatric: no motor/sensory deficits, alert, normal mood/affect, oriented x 3, power is 5/5 both on sides Skin: No normal color, No warm/dry, No cyanosis, No cool, No diaphoresis, No damp, No ecchymosis, No jaundice, No mottled, No pallor, No rash, No tattoos/ piercings, No ulcerations, No rash on exposed areas, No ulcerations on exposed areas, No other A/P: Assessment/Dx: Unstable angina, CAD, PTCA, Paroxysmal atrial fibrillation, Permanent pacemaker, Cardiomyopathy, Abnormal nuclear stress test. Plan: Unstable angina, serial troponin are negative. EKG did not reveal any significant ST-T wave elevations. However due to history of abnormal nuclear stress test last week, previous history of PTCA to RCA with non-STEMI and prolonged episode of chest pain yesterday I have recommended coronary angiography. Informed consent was taken. Patient has allergy to heparin. Therefore we will use bivalirudin. Continue aspirin and Plavix. Since the patient is on Eliquis we will plan to perform coronary angiography on . CAD, PTCA, continue dual antiplatelet therapy. Paroxysmal atrial fibrillation, hold oral anti-coagulation. Permanent pacemaker, no obvious issues. Cardiomyopathy, repeat echocardiogram. Abnormal nuclear stress test. Schedule coronary angiography on 07/10/2018. Complex patient with multiple cardiac issues as outlined above. Thank you for your consultation. Please call me if you have any questions. Deedee Orellana MD, FACP, FACC, FSCAI, FHRS, CCDS Interventional Cardiology Cardiac Electrophysiology Vascular Medicine and Endovascular Interventions Clinical Quality Measures AMI/AHF: ASA po Prior to arrival: Yes Fabien ORELLANA MD Jul 10, 2018 8:24 am
[2018-07-10] MEDS: ISOSORBIDE MONONITRATE 30 MG (IMDUR) TAB PO SCH (08:36)
[2018-07-10] MEDS: AMIODARONE 200 MG (CORDARONE) TAB PO SCH (08:36)
[2018-07-10] MEDS: lisINopril 20 MG (PRINIVIL) TABLET PO SCH (08:36)
[2018-07-10] MEDS: DOCUSATE SODIUM 100 MG (COLACE) CAP PO SCH (08:36)
[2018-07-10] MEDS: FUROSEMIDE 40 MG (LASIX) TAB PO SCH (08:36)
[2018-07-10] MEDS: meTOprolol SUCCINATE 100 MG (TOPROL XL) TAB PO SCH (08:36)
--- NOTE | 2018-07-10 11:25 | Progress Note-Hospitalist ---
Progress Note Progress Notes/Assess & Plan Date Seen 07/10/18 Time Seen by Provider: 11:23 Assessment & Plan The patient is up and showered. He reports his angiography is to be at 1600 today. He has had a minimum of pain over the last 24 hours. He has anxieties as his father is apparently imminently dying. Physical exam: He is alert and oriented. Lungs are clear to auscultation. CV is regular. Abdomen is obese. Extremities while walking he demonstrates bilateral pes planus. The left is more greatly so. He also has external rotation of the leg and foot on the left. Impression: Previous history coronary artery disease. 2.chest pain suggesting angina. Plan: Awaiting angiography. TWAN COREY MD Jul 10, 2018 11:25
--- OUTSIDE RECORDS SUMMARY | 2018-07-11 14:24 | XMS REPORT | Continuity of Care Document ---
[...] Chemical N/A Dermatitis 06/27/2018 06/27/2018 Yes HEPARIN 19706 DRUG INGREDI N/A Other 06/27/2018 06/27/2018 Yes KETOROLAC TROMETHAMINE 66158 DRUG INGREDI High Anaphylaxis 06/27/20182018 Medications Medication [...] Timbo Rashid I25.10 Atherosclerotic heart disease of [place] coronary artery with 06/11/2018 Timbo Rashid Final I47.2 Ventricular tachycardia 06/11/2018 Timbo Rashid Final I48.0 Paroxysmal atrial fibrillation 06/11/2018 Timbo Rashid I50.22 Chronic systolic (congestive) heart failure 06/11/2018 Timbo Rashid R07.9 Chest pain, unspecified 06/11/2018 Timbo Rashid Z68.36 Body mass index (BMI) 36.0-36.9, adult 06/11/2018 Timbo Rashid Final 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 06/11/2018 Timbo Rashid Final Z79.02 FDC (current) use of antithrombotics/antiplatelets 06/11/2018 Timbo Rashid Final Z86.718 Personal history of other venous thrombosis and embolism 06/11/2018 Timbo Rashid Final Z95.0 Presence of cardiac pacemaker 06/11/2018 Timbo Rashid Final Z98.84 Bariatric surgery status 07/01/2018 FAHAD SELLERS V 250500 Chest Pain 07/01/2018 FAHAD SELLERS I20.0 Unstable [...] FAHAD SELLERS I25.110 Atherosclerotic heart disease of [place] coronary artery with unstable angina pectoris (HCC) [...] (bmi) 39.0-39.9, adult 07/01/2018 FAHAD SELLERS Z79.01 FDC (current) use of anticoagulants 07/01/2018 FAHAD SELLERS 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/antiplatelets 07/01/2018 FAHAD SELLERS Z79.82 FDC (current) use of aspirin 07/01/2018 FAHAD SELLERS 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 07/01/2018 FAHAD SELLERS Z82.49 [...] SELLERS Z95.0 Presence of cardiac pacemaker 07/01/2018 FHAAD SELLERS Z96.642 Presence of left artificial hip [...] RED CELL DISTRIBUTION WIDTH 13.9 % 11.8-15.6 8390998 6.1 10E9/L 3.5-10.5 0895241 1.01 10E9/L 0.90-2.90 0057844 0.53 10E9/L 0.30-0.90 8298206 0.07 10E9/L 0.05-0.50 2540704 4.45 10E9/L 1.70-7.00 6180015 0.03 10E9/L 0.00-0.30 5414848 0 % PT T APTT - 06/27/18 [...] RED CELL DISTRIBUTION WIDTH 14.1 % 11.8-15.6 6173315 6.5 10E9/L 3.5-10.5 2692320 0.72 10E9/L 0.90-2.90 1190922 0.58 10E9/L 0.30-0.90 0048483 0.08 10E9/L 0.05-0.50 2128355 5.10 10E9/L 1.70-7.00 0576815 0.03 10E9/L 0.00-0.30 1973915 0 % COMPREHENSIVE METABOLIC PANEL - 06/28/18 [...] RED CELL DISTRIBUTION WIDTH 14.4 % 11.8-15.6 6043714 6.1 10E9/L 3.5-10.5 5847269 0.68 10E9/L 0.90-2.90 8653226 0.36 10E9/L 0.30-0.90 8950598 0.15 10E9/L 0.05-0.50 4988906 4.84 10E9/L 1.70-7.00 4112044 0.02 10E9/L 0.00-0.30 8053273 0 % COMPREHENSIVE METABOLIC PANEL - 06/29/18 [...] RED CELL DISTRIBUTION WIDTH 14.4 % 11.8-15.6 9686002 5.1 10E9/L 3.5-10.5 0780759 0.90 10E9/L 0.90-2.90 1419611 0.43 10E9/L 0.30-0.90 2431209 0.16 10E9/L 0.05-0.50 1902974 3.57 10E9/L 1.70-7.00 7343810 0.01 10E9/L 0.00-0.30 2883334 0 % PT T APTT - 06/30/18 [...] RED CELL DISTRIBUTION WIDTH 14.4 % 11.8-15.6 4753367 4.9 10E9/L 3.5-10.5 1681371 0.74 10E9/L 0.90-2.90 4127046 0.40 10E9/L 0.30-0.90 0454033 0.14 10E9/L 0.05-0.50 6816895 3.64 10E9/L 1.70-7.00 6888540 0.02 10E9/L 0.00-0.30 3855949 0 % PT T APTT - 07/01/18 [...] Status Pt. Type Provider Facility Loc./Unit Complaint [id number] 06/27/2018 13:51:22 07/01/2018 10:54:00 DIS Inpatient FAHAD SELLERS [facility] [id number] 06/27/2018 14:26:28 Document Registration [id number] 06/09/2018 21:29:00 06/11/2018 13:25:00 DIS Inpatient Timbo Rashid [facility] ICU ACS
== END 2018-07-10 11:55 | disposition left against medical advice (07) ==
LOC: ER 17:34 → UNDOADMOB 19:11 → 4TH 19:11 → CATH 20:35 → 4TH 07-09 09:31 → CATH 07-10 11:55 → UNDODISOB 07-10 11:55
PROVIDERS: ATTEND Internal Medicine
DX: I25.119 Atherosclerotic heart disease of native coronary artery with unspecified angina pectoris (principal); R07.9 Chest pain, unspecified; I48.0 Paroxysmal atrial fibrillation; I42.9 Cardiomyopathy, unspecified; R94.39 Abnormal result of other cardiovascular function study; Z95.0 Presence of cardiac pacemaker; Z98.61 Coronary angioplasty status; Z79.01 Long term (current) use of anticoagulants; Z79.899 Other long term (current) drug therapy; I25.2 Old myocardial infarction; I10 Essential (primary) hypertension; R00.2 Palpitations; G89.29 Other chronic pain; E66.01 Morbid (severe) obesity due to excess calories; Z68.36 Body mass index [BMI] 36.0-36.9, adult
CPT/HCPCS: 36415; 71045; 80053; 80061; 82150; 83690; 83735; 83874; 83880; 84484; 85025; 85610; 85730; 87081; 93005; 93041; 93306